=== PATIENT | male | born 1945 | race Caucasian/White ===

== ENCOUNTER 2016-07-11 10:37 | Emergency (ER) | payer MEDICARE, OTHER | END 2016-07-11 13:03 | disposition home or self-care (01) | DX: J06.9 Acute upper respiratory infection, unspecified (principal); B97.89 Other viral agents as the cause of diseases classified elsewhere; I10 Essential (primary) hypertension; E11.9 Type 2 diabetes mellitus without complications; Z79.4 Long term (current) use of insulin; E03.9 Hypothyroidism, unspecified ==

== ENCOUNTER 2018-05-12 13:37 | Outpatient (CLI) | payer MEDICARE, OTHER | END 2018-05-12 13:38 | disposition critical access hospital (66) | LOC: EMS 13:37 | PROVIDERS: ATTEND Surgery | DX: M79.651 Pain in right thigh (principal); W00.0XXA Fall on same level due to ice and snow, initial encounter; Y92.79 Other farm location as the place of occurrence of the external cause | CPT/HCPCS: A0425; A0429 ==

== ENCOUNTER 2018-05-12 13:57 | Inpatient (IN) | payer MEDICARE, OTHER ==
[2018-05-12] MEDS ORDERED: MORPHINE 2 MG/ML CARPUJECT IVP STA ×2 (14:01→15:17)
[2018-05-12] MEDS ORDERED: SODIUM CHLORIDE 0.9% 1,000 ML IV ONE (14:01)
--- NOTE | 2018-05-12 14:03 | ED Physician Documentation ---
PD HPI LOWER EXT INJURY - Stated complaint Stated Complaint: HIP PX - History obtained from History obtained from: Patient, EMS - History of Present Illness PD HPI LOW EXT INJURY LOCATION: Right (73-year-old gentleman with history of type 2 diabetes and hypertension, not anticoagulated except for turmeric presents after a slip and fall on the ice landing directly on the right hip with severe pain there. No head or neck injury. He is unable to walk or bear weight.) Review of Systems Ten Systems: 10 systems reviewed and negative Constitutional: reports: Reviewed and negative Cardiac: reports: Reviewed and negative Respiratory: reports: Reviewed and negative PD PAST MEDICAL HISTORY - Past Medical History Past Medical History: Yes Cardiovascular: Hypertension Endocrine/Autoimmune: Type 2 diabetes, HyPOthyroidism - Present Medications Home Medications: Ambulatory Orders Medication Instructions Recorded Confirmed Insulin Aspart [NovoLOG] 1 unit SQ DAILY 07/11/16 05/12/18 Insulin Degludec [Tresiba 10 units SQ DAILY 07/11/16 05/12/18 Flextouch U-100] Levothyroxine Sodium [Synthroid] 175 mcg PO QDAC 05/12/18 05/12/18 Losartan Potassium 25 mg PO DAILY 05/12/18 05/12/18 - Allergies Allergies/Adverse Reactions: Allergies Allergy/AdvReac Type Severity Reaction Status Date / Time Latex, Natural Rubber Allergy Itching Verified 05/12/18 14:03 - Living Situation Living Situation: reports: With spouse/s.o. - Social History Does the pt smoke?: No Smoking Status: Never smoker Does the pt drink ETOH?: Yes Does the pt have substance abuse?: No - Family History Family history: reports: Non contributory PD ED PE NORMAL - Vitals Vital signs reviewed: Yes - General General: Alert and oriented X 3, Other (He is comfortable at rest but winces with any motion) - HEENT HEENT: PERRL, EOMI - Neck Neck: Supple, no meningeal sign, No bony TTP - Cardiac Cardiac: RRR, No murmur - Respiratory Respiratory: No respiratory distress, Clear bilaterally - Abdomen Abdomen: Normal bowel sounds, Soft, Non tender - Back Back: No CVA TTP, No spinal TTP - Extremities Extremities: Other (Severely tender over the right upper hip with shortening and external rotation) - Neuro Neuro: Alert and oriented X 3, Normal speech - Psych Psych: Normal mood, Normal affect Results - Vitals Vitals: Vital Signs - 24 hr 05/12/18 05/12/18 13:59 15:28 Temperature 36.4 C L Heart Rate 82 90 Respiratory 18 18 Rate Blood Pressure 168/127 H 189/77 H O2 Saturation 97 100 Oxygen O2 Source Room air - EKG (time done) 1524 Rate: Rate (enter#) (80) Rhythm: NSR Mauldin: Normal Intervals: Normal MD QRS: Normal Ischemia: Normal ST segments Computer interpretation: Disagree with computer - Labs Labs: Laboratory Tests 05/12/18 05/12/18 05/12/18 14:17 14:17 14:17 WBC 7.1 RBC 4.50 L Hgb 14.0 Hct 39.8 L MCV 88.5 MCH 31.1 H MCHC 35.1 RDW 12.9 Plt Count 271 MPV 8.1 Neut # (Auto) 5.4 Lymph # (Auto) 1.1 L [place] # (Auto) 0.4 Eos # (Auto) 0.0 Baso # (Auto) 0.1 Absolute Nucleated RBC 0.00 Nucleated RBC % 0.0 PT 11.6 INR 1.0 Sodium 135 Potassium 3.9 Chloride 99 L Carbon Dioxide 24 Anion Gap 12.0 BUN 18 Creatinine 1.0 Estimated GFR (MDRD) 73 L Glucose 141 H Calcium 9.2 Total Bilirubin 1.5 H AST 29 ALT 21 Alkaline Phosphatase 75 Total Protein 7.1 Albumin 4.2 Globulin 2.9 Albumin/Globulin Ratio 1.4 Lipase 23 PD MEDICAL DECISION MAKING - ED course Complexity details: d/w sap treasury consultant (Steve York, magnetic resonance imaging coordinator ortho will take to OR today or tomorrow. Also Dr [facility]don[facility] who will [facility].) Departure - Departure Disposition: [facility] DC/Xfer Clinical Impression: Subtrochanteric fracture Qualifiers: Encounter type: initial encounter Fracture type: closed Fracture alignment: displaced Laterality: right Qualified Code(s): S72.21XA - Displaced subtrochanteric fracture of right femur, initial encounter for closed fracture Condition: Stable
[2018-05-12 14:28] LABS: BASOPHILS # (AUTO) 0.1 10^3/uL (0.0-0.1); BASOPHILS % (AUTO) 1.1 %; EOSINOPHILS % (AUTO) 0.7 %; LYMPHOCYTES # (AUTO) 1.1 10^3/uL (1.5-3.5); MEAN CORPUSCULAR HEMOGLOBIN 31.1 pg (27.0-31.0); MEAN CORPUSCULAR HGB CONC 35.1 g/dL (32.0-36.0); MEAN CORPUSCULAR VOLUME 88.5 fL (80.0-94.0); MEAN PLATELET VOLUME 8.1 fL (7.4-11.4); MONOCYTES # (AUTO) 0.4 10^3/uL (0.0-1.0); MONOCYTES % (AUTO) 6.1 %; NEUTROPHILS # (AUTO) 5.4 10^3/uL (1.5-6.6); NEUTROPHILS % (AUTO) 76.1 %; PLT - PLATELET COUNT 271 10^3/uL (130-450); RED CELL DISTRIBUTION WIDTH 12.9 % (12.0-15.0); WHITE BLOOD COUNT 7.1 x10^3/uL (4.8-10.8)
[2018-05-12 14:36] LABS: PT - PROTHROMBIN TIME 11.6 secs (9.9-12.6)
[2018-05-12 14:48] LABS: ALBUMIN 4.2 g/dL (3.2-5.5); ALBUMIN/GLOBULIN RATIO 1.4 (1.0-2.2); BILIRUBIN,TOTAL 1.5 mg/dL (0.2-1.0); CALCIUM 9.2 mg/dL (8.5-10.3); TOTAL PROTEIN 7.1 g/dL (6.7-8.2)
[2018-05-12] MEDS ORDERED: SODIUM CHLORIDE FLUSH 0.9% 10 ML SYRINGE IVP PRN (15:28)
[2018-05-12] MEDS ORDERED: PROCHLORPERAZINE 10 MG/2 ML VIAL IVP PRN (15:28)
[2018-05-12] MEDS ORDERED: ONDANSETRON ODT 4 MG TABLET TL PRN (15:28)
[2018-05-12] MEDS ORDERED: ONDANSETRON 4 MG/2 ML VIAL IVP PRN (15:28)
--- NOTE | 2018-05-12 15:38 | HISTORY & PHYSICAL EXAMINATION ---
Chief Complaint - Chief Complaint Chief Complaint: s/p fall with right hip and leg pain History of Present Illness - Admitted From Admitted From:: ED - History Obtained From Records Reviewed: Yes History obtained from: patient Exam Limitations: none - History of Present Illness HPI Comment/Other: 73-year-old gentleman with history of type 2 diabetes and hypertension, not anticoagulated except for turmeric presents after a slip and fall on the ice landing directly on the right hip with severe pain there. No head or neck injury. He is unable to walk or bear weight. On initial exam patient was unable to walk with LROM to abduction/adduction of right hip along with a subtrochanteric fx seen on imaging. CXR shows no CP process, patient with normal labs and VSS show pain induced uncontrolled HTN. Patient on losartan, synthroid and is a Insuling req Type 2 diabetic. Patient has on tumeric previously, denies chest pain, LOC, syncopal events prior to fall, numbness to right lower extremity or head trauma. Patient to be admitted for further treatment with repair of fracture and pain control. History - Past Medical History Cardiovascular: reports: Hypertension Endocrine/Autoimmune: reports: Type 2 diabetes, HyPOthyroidism - Family & Social History Living Situation: With spouse/s.o. Meds/Allgy - Home Medications Home Medications: Ambulatory Orders Medication Instructions Recorded Confirmed Insulin Degludec [Tresiba 6 units SQ DAILY 07/11/16 05/12/18 Flextouch U-100] Insulin Aspart (Niacinamide) 1 - 10 units SUBQ ACHS 05/12/18 05/12/18 [Fiasp 100 Unit/ml Vial] Levothyroxine Sodium [Synthroid] 175 mcg PO QDAC 05/12/18 05/12/18 Losartan Potassium 25 mg PO DAILY 05/12/18 05/12/18 - Allergies Allergies/Adverse Reactions: Allergies Allergy/AdvReac Type Severity Reaction Status Date / Time Latex, Natural Rubber Allergy Itching Verified 05/12/18 14:03 Review of Systems - Constitutional Constitutional: denies: Fatigue, Fever, Chills - Eyes Eyes: denies: Pain, Irritation, Vision loss - Ears, Nose & Throat Ears, Nose & Throat: denies: Tinnitus, Vertigo - Cardiovascular Cariovascular: denies: Irregular heart rate, Palpitations, Chest pain, Edema, Li ghtheadedness, Syncope, Exertional dyspnea, Decr. exercise tolerance, Orthopnea - Respiratory Respiratory: denies: Cough, Sputum production, Wheezing, Snoring, Hemoptysis, Orthopnea, Apnea, Pleuritic pain - Gastrointestinal Gastrointestinal: denies: Abdominal pain, Constipation, Diarrhea, Change in bowel habits, Black stools, Bloody stools, Nausea, Coffee grounds emesis, Reflux/heartburn, Poor appetite - Genitourinary Genitourinary: denies: Dysuria, Frequency, Urgency, Hematuria - Musculoskeletal Musculoskeletal: denies: Muscle pain, Back pain, Muscle aches - Integumentary Integumentary: denies: Rash, Pruritis, Lesions, Pigment changes - Neurological Neurological: denies: General weakness, Focal weakness, Headache, Dizziness, Numbness, Memory problems, Pre-existing deficit, Abnormal gait - Psychiatric Psychiatric: denies: Depression, Anxiety, Suicidal, Delusions, Hallucinations - Endocrine Endocrine: denies: Polyuria, Polydypsia, Polyphagia, Intolerance to cold - Hematologic/Lymphatic Hematologic/Lymphatic: denies: Anemia, Bruising, Blood clots, Lymphadenopathy Prior Level of Functionality: Is currently independent with ADL's Exam - Vital Signs Reviewed Vital Signs: Yes Vital Signs: Vital Signs x48h Temp Pulse Resp BP Pulse Ox 05/12/18 15:28 90 18 189/77 H 100 05/12/18 13:59 36.4 C L 82 18 168/127 H 97 - Physical Exam General Appearance: positive: No acute distress Eyes Bilateral: positive: Normal inspection, PERRL, EOMI ENT: positive: ENT inspection nml, Pharynx nml, No signs of dehydration Neck: positive: Nml inspection, Thyroid nml, No JVD, Trachea midline. negative: Thyromegaly Respiratory: positive: Chest non-tender, No respiratory distress, Breath sounds nml Cardiovascular: positive: Regular rate & rhythm, No murmur, No gallop. negative: Irregularly irregular, JVD present, Gallop/S4, Friction rub Peripheral Pulses: positive: 2+ Abdomen: positive: Non-tender, No organomegaly, Nml bowel sounds, No distention. negative: Tenderness Skin: positive: Color nml, No rash, Warm Extremities: positive: Non-tender, Nml appearance, Other (LROM to abduction/adduction to right hip). negative: Pedal edema, Calf tenderness, Joint swelling Conclusion/Plan - Problem List (1) Subtrochanteric fracture Conclusion/Plan: s/p mechanical fall with now LROM and mobility would need orhto to repair tonight or tomorrow am. However would hold off since he has been on tumeric and would cause bleeding intra-operatively. Pain control. Ortho to eval for surgery in am. Would give IVF's, medical manage other medical conditions. Qualifiers: Encounter type: initial encounter Fracture type: closed Fracture alignment: displaced Laterality: right Qualified Code(s): S72.21XA - Disp laced subtrochanteric fracture of right femur, initial encounter for closed fracture (2) Pre-operative cardiovascular examination Conclusion/Plan: Patient's MILLARD perioperative riskl yields a KENNY risk of 0.2 % (low); Up to 30 days post-op) for a low risk procedure due his age, good functional status, renal function, ASA class, and controlled medical conditions. In addition, further risk stratification for his pre-operative risk yields a 2.4% perioperat hien risk. May have surgery but may bleed intraoperatively due to his tumeric consumption. CXR was normal and would defer ecg as no tachycardias seen. (3) Hypertension, uncontrolled Conclusion/Plan: Would place on IV hydralazine prn, place back on home bp meds (4) Insulin-requiring or dependent type II diabetes mellitus Conclusion/Plan: Place on Carb-control diet with glycemic control with bolus and basal coverage if needed, obtain a HgbA1c. (5) Hypothyroidism Conclusion/Plan: Obtain a TSH and re-start synthroid. Qualifiers: Hypothyroidism type: acquired Qualified Code(s): E03.9 - Hypothyroidism, unspecified - Lab Results Lab results reviewed: Yes Fish Bones: 05/12/18 14:17 05/12/18 14:17 - Diagnostic Imaging Results Diagnostic Imaging Results: positive: Final report reviewed - EKG Results EKG Interpreted Independently: No Core Measures - Anticipated LOS I expect patient to be DC'd or transferred within 96 hours.: Yes - DVT/VTE - Prophylaxis VTE/DVT Device ordered at admit?: Yes VTE/DVT Prophylaxis med ordered at admit?: No Not Ordered - Medical Reason: Not indicated - Stroke - Rehab Assessment Rehab services assessment to be ordered?: No Not Ordered - Medical Reason: Not indicated - AMI - Statin at Admit Aspirin Prescribed on Admit: No Not Ordered - Medical Reason: Not indicated
[2018-05-12] MEDS ORDERED: hydrALAZINE INJ 20 MG/ML VIAL IVP PRN (15:54)
--- NOTE | 2018-05-12 16:01 | XRAY Report ---
Reason: femur frx Procedure Date: 05/12/2018 Accession Number: [id number] / [id number] Procedure: XR - Femur 2V RT CPT Code: FULL RESULT: EXAM: RIGHT FEMUR RADIOGRAPHY EXAM DATE: 05/12/2018 03:11 PM. CLINICAL HISTORY: Femur fracture COMPARISON: None. TECHNIQUE: 2 views. FINDINGS: Bones: Intertrochanteric, proximal femoral fracture is seen on hip views. Joints: Degenerative changes knee Soft Tissues: Normal. No soft tissue swelling. IMPRESSION: Intertrochanteric, proximal femoral fracture is seen on hip films. This does not extend to the distal femur RADIA
--- NOTE | 2018-05-12 16:02 | XRAY Report ---
Reason: hip inj Procedure Date: 05/12/2018 Accession Number: [id number] / [id number] Procedure: XR - Hip w/Pelvis 2-3V RT CPT Code: FULL RESULT: EXAM: RIGHT HIP RADIOGRAPHY EXAM DATE: 05/12/2018 03:11 PM. CLINICAL HISTORY: Hip inj. COMPARISON: None. TECHNIQUE: 2 views. FINDINGS: Bones: Vertical oblique fracture through the intertrochanteric region extending into the proximal femur. Offset of distal fragment medially by 2.4 cm. Joints: Hip joint space narrowing. Soft Tissues: Normal. No soft tissue swelling. IMPRESSION: Intertrochanteric fracture extending into proximal femur RADIA
--- NOTE | 2018-05-12 16:19 | XRAY Report ---
Reason: preop Procedure Date: 05/12/2018 Accession Number: [id number] / [id number] Procedure: XR - Chest 1 View X-Ray CPT Code: 62005 FULL RESULT: EXAM: CHEST RADIOGRAPHY EXAM DATE: 05/12/2018 03:11 PM. CLINICAL HISTORY: Preop. COMPARISON: CHEST 2 VIEW PA/LAT 07/11/2016 11:58 AM. TECHNIQUE: 1 view. FINDINGS: Diffuse film artifact throughout the image, which limits evaluation. Heart size is normal. Calcified plaque in the thoracic aorta. No definite consolidation, pleural effusion, or pneumothorax. Apparent 5 mm nodular opacity projecting over the lateral left lung base, which may have been present on the prior exam from 2017. IMPRESSION: No definite acute cardiopulmonary findings. Film artifact limits evaluation. RADIA
[2018-05-12 16:50] LABS: HEMOGLOBIN A1C 0.76 g/dL; HEMOGLOBIN A1C % 6.8 % (4.6-6.2)
--- NOTE | 2018-05-12 17:21 | ADVANCE CARE PLANNING NOTE ---
Advance Care Planning - Date/Time Date: 05/12/18 Time: 17:00 - Parties in attendance Parties in attendance: Family - Decisional capacity Decisional capacity of: Good - Subjective/Patient's story Subjective/Patient's story: Patient mentions he lost his footing and fell backwards and says he was unable to walk. Knows that his right hip needs to be repaired. - Objective/Medical story Objective/Medical Story: 73-year-old gentleman with history of type 2 diabetes and hypertension, not anticoagulated except for turmeric presents after a slip and fall on the ice landing directly on the right hip with severe pain there. No head or neck injury. He is unable to walk or bear weight. On initial exam patient was unable to walk with LROM to abduction/adduction of right hip along with a subtrochanteric fx seen on imaging. CXR shows no CP process, patient with normal labs and VSS show pain induced uncontrolled HTN. Patient on losartan, synthroid and is a Insuling req Type 2 diabetic. Patient has on tumeric previously, denies chest pain, LOC, syncopal events prior to fall, numbness to right lower extremity or head trauma. Patient to be admitted for further treatment with repair of fracture and pain control. - Goals of Care Goals of care determinations: Pain control and the need for surgery were discusses and he vocalized concerns and questions were addressed. - Plan Plan: Patient to have surgery by moses York tomorrow noon. Pain control, bed rest, and IVF;s to continue for now, control sugars, BP excursions as delineated by admission note. - Code Status Code Status: Attempt Resuscitation - Time Spent on Advance Care Planning Time spent on advance care plannin
[2018-05-12] MEDS: LACTATED RINGERS 1,000 ML IV SCH (17:25)
[2018-05-12] MEDS: SODIUM CHLORIDE FLUSH 0.9% 10 ML SYRINGE IVP SCH (17:25)
[2018-05-12] MEDS: INSULIN ASPART 300 UNIT/3 ML PEN SUBQ SCH ×2 (17:33→20:37)
[2018-05-12] MEDS: MORPHINE 2 MG/ML CARPUJECT IVP PRN ×2 (17:34→21:32)
--- NOTE | 2018-05-12 18:59 | CONSULTATION NOTE ---
Referring Provider Name of Referring Provider:: Chalo Lemos MD Consult Date: 05/12/18 Chief Complaint - Chief Complaint Chief Complaint: asked to evaluate for right subtroch, spiral femur fracture History of Present Illness - Admitted From Admitted From:: ED - History Obtained From History obtained from: ED MD, patient, , daughter - History of Present Illness HPI Comment/Other: Adrian is a 73yo male, in usual state of health until today when walking at [employer], slipped fell reportedly onto right hip/thigh, heard a snap, had pain and inability to ambulate. He was attended to by bystanders, then ultimately brought to ED via EMS. Patient is evaluated in the emergency department with his and daughter at the bedside. Patient describes only right hip and thigh pain. Says he is relatively comfortable at rest but that any movement will cause pain in that region. Denies head or neck injury or other traumatic complaints at this time. History - Past Medical History Cardiovascular: reports: Hypertension Neuro: reports: None Endocrine/Autoimmune: reports: Type 2 diabetes, HyPOthyroidism - Family & Social History Living Situation: With spouse/s.o. Meds/Allgy - Home Medications Home Medications: Ambulatory Orders Medication Instructions Recorded Confirmed Insulin Degludec [Tresiba 6 units SQ DAILY 07/11/16 05/12/18 Flextouch U-100] Insulin Aspart (Niacinamide) 1 - 10 units SUBQ ACHS 05/12/18 05/12/18 [Fiasp 100 Unit/ml Vial] Levothyroxine Sodium [Synthroid] 175 mcg PO QDAC 05/12/18 05/12/18 Losartan Potassium 25 mg PO DAILY 05/12/18 05/12/18 - Allergies Allergies/Adverse Reactions: Allergies Allergy/AdvReac Type Severity Reaction Status Date / Time Latex, Natural Rubber Allergy Itching Verified 05/12/18 14:03 Exam - Vital Signs Vital Signs: Vital Signs x48h Temp Pulse Pulse Resp BP BP Pulse Ox 05/12/18 17:07 37.1 C 85 20 175/61 H 100 05/12/18 16:59 79 16 170/67 H 99 05/12/18 16:26 85 16 182/71 H 100 05/12/18 15:28 90 18 189/77 H 100 05/12/18 13:59 36.4 C L 82 18 168/127 H 97 - Physical Exam Comments/Other: Patient is a well-developed well-nourished 73-year-old gentleman in no acute distress. He is cooperative with the exam. Patient's right lower extremity is examined. He has palpable dorsalis pedis and posterior tibial pulses. He is able to initiate flexion extension of his toes and ankle. He has pain in the hip and thigh on the right side with attempts at knee flexion extension though he can initiate these. Thigh and calf compartments soft. He has proximal thigh fullness but it is still soft. Any slight rotational movement of the lower extremity which is in a slightly shortened externally rotated position is painful. Skin overlying the hip and thigh is intact. Conclusion/Plan - Diagnosis Diagnosis: RIGHT SUB TROCHANTERIC SPIRAL FEMUR FRACTURE - Plan Plan: Adrian is a 73-year-old male with a right subtrochanteric displaced spiral femur fracture. There are no other obvious trauma appreciated at this time. Discussed potential operative risks benefits and alternatives. Talked about natural history and relevant literature as a pertains to this patient. Talked about potential short-term and long-term problems with and without surgery. Talked about potential operative risks including but not limited to infection wound problems nerve or blood vessel injury bleeding blood loss blood clot blood clot embolus positioning complications anesthetic complications including but not limited to major cardiovascular neurovascular complications even . Talked about potential iatrogenic injury and the potential for length alignment and rotational abnormality. Talked about potential need for further operative care in the future. Talked about potential for overall impact to his function decreased ambulatory status and other risks such as pneumonia bedsores and other issues with relative immobility. The patient the patient's family's questions were answered the patient verbalized their understanding above verbalize wish to proceed with operative treatment. Informed consent was given. Medical risk stratification and optimization, ortho implants incoming, plan for right femur cephalomedullary nail/ORIF tomorrow pending above. questions answered. All in agreement with plan. rec analgesia, pascual cath, IS q1hr when awake, scd's or foot pumps, cont med mgt - Lab Results Lab results reviewed: Yes Fish Bones: 05/12/18 14:17 05/12/18 14:17
[2018-05-12] MEDS: FAMOTIDINE 20 MG/50 ML 50 ML IV SCH (20:36)
[2018-05-13] MEDS: MORPHINE 2 MG/ML CARPUJECT IVP PRN ×2 (00:06→06:02)
[2018-05-13] MEDS: SODIUM CHLORIDE FLUSH 0.9% 10 ML SYRINGE IVP SCH ×3 (01:15→17:14)
[2018-05-13] MEDS: LACTATED RINGERS 1,000 ML IV SCH ×3 (03:37→21:00)
[2018-05-13] MEDS: LEVOTHYROXINE 75 MCG TABLET PO SCH (06:03)
[2018-05-13] MEDS: LEVOTHYROXINE 100 MCG TABLET PO SCH (06:03)
[2018-05-13] MEDS ORDERED: INSULIN REGULAR HUMAN 100 UNIT/1 ML 10 ML MDV SUBQ SCH (08:00)
[2018-05-13] MEDS: oxyCODONE 5 MG TABLET PO PRN (10:00)
[2018-05-13] MEDS: POLYETHYLENE GLYCOL 3350 17 GM PACKET PO SCH (10:02)
[2018-05-13] MEDS: FAMOTIDINE 20 MG/50 ML 50 ML IV SCH ×2 (10:04→20:59)
--- NOTE | 2018-05-13 10:27 | ANESTHESIA ---
Pre-Anesthesia VS, & Labs - Diagnosis Diagnosis RIGHT SUB TROCHANTERIC SPIRAL FEMUR FRACTURE - Procedure Right femur cephalomed nail Vital Signs: Temp Pulse Resp BP Pulse Ox 36.9 C 86 18 149/63 H 96 05/13/18 08:00 05/13/18 08:00 05/13/18 08:00 05/13/18 08:00 05/13/18 08:00 Height 6 ft Weight (kg) 93 kg Body Mass Index 27.8 - NPO >8 hours - Lab Results Current Lab Results: Laboratory Tests 05/12/18 14:17: Glycated Hemoglobin 6.8 H, Estim Average Glucose 148 H 05/12/18 14:17: Blood Type O POSITIVE, Antibody Screen NEGATIVE 05/12/18 14:17: Sodium 135, Potassium 3.9, Chloride 99 L, Carbon Dioxide 24, Anion Gap 12.0, BUN 18, Creatinine 1.0, Estimated GFR (MDRD) 73 L, Glucose 141 H , Calcium 9.2, Total Bilirubin 1.5 H, AST 29, ALT 21, Alkaline Phosphatase 75, Total Protein 7.1, Albumin 4.2, Globulin 2.9, Albumin/Globulin Ratio 1.4, Lipase 23 05/12/18 14:17: PT 11.6, INR 1.0 05/12/18 14:17: WBC 7.1, RBC 4.50 L, Hgb 14.0, Hct 39.8 L, MCV 88.5, MCH 31.1 H, MCHC 35.1, RDW 12.9, Plt Count 271, MPV 8.1, Neut # (Auto) 5.4, Lymph # (Auto) 1.1 L, Harmon # (Auto) 0.4, Eos # (Auto) 0.0, Baso # (Auto) 0.1, Absolute Nucleated RBC 0.00, Nucleated RBC % 0.0 Fish Bones: 05/12/18 14:17 05/12/18 14:17 Home Medications and Allergies Home Medications: Ambulatory Orders Insulin Aspart (Niacinamide) [Fiasp 100 Unit/ml Vial] 1 - 10 units SUBQ ACHS 05/12/18 Levothyroxine Sodium [Synthroid] 175 mcg PO QDAC 05/12/18 Losartan Potassium 25 mg PO DAILY 05/12/18 Active Medications Hydralazine HCl (Apresoline Inj) 20 mg IVP Q4HR PRN PRN Reason: SBP>180 Famotidine (Pepcid 20 Mg/50 Ml) 50 mls @ 100 mls/hr IV BID [facility] Last Admin: 05/13/18 10:04 Dose: 100 mls/hr Lactated Ringer's (Lr) 1,000 mls @ 100 mls/hr IV .Q10H [facility] Last Infusion: 05/13/18 06:56 Dose: 100 mls/hr Insulin Human Regular (Novolin R) 1 - 9 unit SUBQ Q6HR [facility]; Protocol Last Admin: 05/13/18 08:23 Dose: 9 unit Levothyroxine Sodium (Synthroid) 75 mcg PO QDAC [facility] Last Admin: 05/13/18 06:03 Dose: 75 mcg Levothyroxine Sodium (Synthroid) 100 mcg PO QDAC [facility] Last Admin: 05/13/18 06:03 Dose: 100 mcg Losartan Potassium (Cozaar) 25 mg PO DAILY [facility] Morphine Sulfate (Morphine (Carpuject)) 2 mg IVP Q2HR PRN PRN Reason: Pain 8 to 10 Last Admin: 05/13/18 06:02 Dose: 2 mg Ondansetron HCl (Zofran Inj) 4 mg IVP Q6HR PRN PRN Reason: Nausea / Vomiting Ondansetron HCl (Zofran Odt) 4 mg TL Q6HR PRN PRN Reason: Nausea / Vomiting Oxycodone HCl (Roxicodone) 5 mg PO Q4HR PRN PRN Reason: Pain 5 to 7 Last Admin: 05/13/18 10:00 Dose: 5 mg Polyethylene Glycol (Miralax) 17 gm PO DAILY [facility] Last Admin: 05/13/18 10:02 Dose: Not Given Prochlorperazine Edisylate (Compazine Inj) 10 mg IVP Q6HR PRN PRN Reason: Nausea / Vomiting Sodium Chloride (Normal Saline Flush 0.9%) 10 ml IVP PRN PRN PRN Reason: NEEDED PER PROVIDER ORDERS Sodium Chloride (Normal Saline Flush 0.9%) 10 ml IVP 0100,0900,1700 [facility] Last Admin: 05/13/18 01:15 Dose: Not Given Insulin Degludec [Tresiba Flextouch U-100] 6 units SQ DAILY 07/11/16 Insulin Aspart (Niacinamide) [Fiasp 100 Unit/ml Vial] 1 - 10 units SUBQ ACHS 05/12/18 Levothyroxine Sodium [Synthroid] 175 mcg PO QDAC 05/12/18 Losartan Potassium 25 mg PO DAILY 05/12/18 Allergies/Adverse Reactions: Allergies Allergy/AdvReac Type Severity Reaction Status Date / Time Latex, Natural Rubber Allergy Itching Verified 05/12/18 14:03 Anes History & Medical History - Medical History Cardiovascular: reports: Hypertension Neuro: reports: None Endocrine/Autoimmune: reports: Type 2 diabetes, HyPOthyroidism Smoking Status: Never smoker - Surgical History Orthopedic: Arthroscopic surgery (knee) Exam General: Alert Dental: WNL Mouth Opening: Greater than 4 Fingerbreadths Mallampati classification: II Thyromental Distance: greater than 6 cm Respiratory: Lungs clear Cardiovascular: Regular rate Plan Anesthesia Type: General Consent for Procedure(s) Verified and Reviewed: Yes Code Status: Attempt Resuscitation ASA classification: 2-Mild systemic disease Is this case an emergency?: Yes
[2018-05-13] MEDS: LOSARTAN 50 MG TABLET PO SCH (10:50)
--- NOTE | 2018-05-13 10:52 | PROVIDER PROGRESS NOTE ---
Assessment/Plan - Problem List (1) Subtrochanteric fracture Qualifiers: Encounter type: initial encounter Fracture type: closed Fracture alignment: displaced Laterality: right Qualified Code(s): S72.21XA - Displaced subtrochanteric fracture of right femur, initial encounter for closed fracture Assessment/Plan: Surgery scheduled for mid-day today. Continue narcotics for pain control as needed. Will plan PT/OT starting tomorrow. Possible SNF candidate in several days. (2) Insulin-requiring or dependent type II diabetes mellitus Assessment/Plan: Will change his Reg insulin, that he is resistant to, to Aspart ss Insulin, for NPO, then eating patient. Continue fingerstick glu checks and jypoglycemia protocol, because pt can drop low, per him. (3) Hypothyroidism Qualifiers: Hypothyroidism type: acquired Qualified Code(s): E03.9 - Hypothyroidism, unspecified Assessment/Plan: His Levothyroxine 175 mcg daily dose will be continued while here. (4) HTN (hypertension) Qualifiers: Hypertension type: essential hypertension Qualified Code(s): I10 - Essen tial (primary) hypertension Assessment/Plan: He was poorly controlled at admission, possibly due to pain. BP is better now. His home dose of Losartan 25 mg daily will be continued while here. - Current Meds Current Meds: Current Medications Generic Name Dose Route Start Last Admin Trade Name Freq PRN Reason Stop Dose Admin Famotidine 50 mls @ 100 mls/hr 05/12/18 21:00 05/13/18 10:04 Pepcid 20 Mg/50 Ml IV 100 mls/hr BID ERVIN Administration Lactated Ringer's 1,000 mls @ 100 mls/hr 05/12/18 16:00 05/13/18 06:56 Lr IV 100 mls/hr .Q10H ERVIN Infusion Levothyroxine Sodium 75 mcg 05/13/18 07:00 05/13/18 06:03 Synthroid PO 75 mcg QDAC ERVIN Administration Levothyroxine Sodium 100 mcg 05/13/18 07:00 05/13/18 06:03 Synthroid PO 100 mcg QDAC ERVIN Administration Morphine Sulfate 2 mg 05/12/18 15:28 05/13/18 06:02 Morphine (Carpuject) IVP 2 mg Q2HR PRN Administration Pain 8 to 10 Oxycodone HCl 5 mg 05/12/18 15:28 05/13/18 10:00 Roxicodone PO 5 mg Q4HR PRN Administration Pain 5 to 7 Polyethylene Glycol 17 gm 05/13/18 09:00 05/13/18 10:02 Miralax PO Not Given DAILY [facility] Sodium Chloride 10 ml 05/12/18 17:00 05/13/18 01:15 Normal Saline Flush 0.9% IVP Not Given 0100,0900,1700 ERVIN - Lab Result Fish Bone Diagrams: 05/12/18 14:17 05/12/18 14:17 - Additional Planning My Orders: My Active Orders 05/13/18 07:47 Blood Glucose POC [RC] 0000,0600,1200,1800 05/13/18 07:48 DIET [NPO] [DIET] Subjective - Subjective Patient Reports: Pain (Getting narcotics for [pain at fracture site), Other ("Regular Insulin doesn't work". He was changed to Aspart, Novolog and Humolog. He has a continuous glucose monitor.) Objective Vital Signs: Vital Signs - 24 hr 05/12/18 05/12/18 05/12/18 13:59 15:28 16:26 Temperature 36.4 C L Heart Rate 82 90 85 Heart Rate [ Brachial] Respiratory 18 18 16 Rate Blood Pressure 168/127 H 189/77 H 182/71 H Blood Pressure [Right Brachial artery] O2 Saturation 97 100 100 05/12/18 05/12/18 05/12/18 16:59 17:07 23:40 Temperature 37.1 C 37.0 C Heart Rate 79 Heart Rate [ 85 91 Brachial] Respiratory 16 20 16 Rate Blood Pressure 170/67 H Blood Pressure 175/61 H 137/60 H [Right Brachial artery] O2 Saturation 99 100 98 05/13/18 08:00 Temperature 36.9 C Heart Rate Heart Rate [ 86 Brachial] Respiratory 18 Rate Blood Pressure Blood Pressure 149/63 H [Right Brachial artery] O2 Saturation 96 Oxygen O2 Source Room air I&O (Last 24 Hrs): Intake and Output Totals x24h 05/11/18 05/12/18 05/13/18 23:59 23:59 23:59 Intake Total 5446.926 3064.334 Output Total 850 1100 Balance 818.333 -86.666 General: Alert, Oriented x3 HEENT: Mucous membr. moist/pink Neck: Supple, No JVD Neuro: Non Focal Cardiovascular: Regular rate Respiratory: No respiratory distress Abdomen: Soft Extremities: No edema - Results Results: Laboratory Results WBC 7.1 x10^3/uL (4.8-10.8) 05/12/18 14:17 RBC 4.50 10^6/uL (4.70-6.10) L 05/12/18 14:17 Hgb 14.0 g/dL (14.0-18.0) 05/12/18 14:17 Hct 39.8 % (42.0-52.0) L 05/12/18 14:17 MCV 88.5 fL (80.0-94.0) 05/12/18 14:17 MCH 31.1 pg (27.0-31.0) H 05/12/18 14:17 MCHC 35.1 g/dL (32.0-36.0) 05/12/18 14:17 RDW 12.9 % (12.0-15.0) 05/12/18 14:17 Plt Count 271 10^3/uL (130-450) 05/12/18 14:17 MPV 8.1 fL (7.4-11.4) 05/12/18 14:17 Neut # (Auto) 5.4 10^3/uL (1.5-6.6) 05/12/18 14:17 Lymph # (Auto) 1.1 10^3/uL (1.5-3.5) L 05/12/18 14:17 [place] # (Auto) 0.4 10^3/uL (0.0-1.0) 05/12/18 14:17 Eos # (Auto) 0.0 10^3/uL (0.0-0.7) 05/12/18 14:17 Baso # (Auto) 0.1 10^3/uL (0.0-0.1) 05/12/18 14:17 Absolute Nucleated RBC 0.00 x10^3/uL 05/12/18 14:17 Nucleated RBC % 0.0 /100WBC 05/12/18 14:17 PT 11.6 secs (9.9-12.6) 05/12/18 14:17 INR 1.0 (0.8-1.2) 05/12/18 14:17 Sodium 135 mmol/L (135-145) 05/12/18 14:17 Potassium 3.9 mmol/L (3.5-5.0) 05/12/18 14:17 Chloride 99 mmol/L (101-111) L 05/12/18 14:17 Carbon Dioxide 24 mmol/L (21-32) 05/12/18 14:17 Anion Gap 12.0 (6-13) 05/12/18 14:17 BUN 18 mg/dL (6-20) 05/12/18 14:17 Creatinine 1.0 mg/dL (0.6-1.2) 05/12/18 14:17 Estimated GFR (MDRD) 73 (>89) L 05/12/18 14:17 Glucose 141 mg/dL (70-100) H 05/12/18 14:17 Glycated Hemoglobin 6.8 % (4.6-6.2) H 05/12/18 14:17 Estim Average Glucose 148 (70-100) H 05/12/18 14:17 Calcium 9.2 mg/dL (8.5-10.3) 05/12/18 14:17 Total Bilirubin 1.5 mg/dL (0.2-1.0) H 05/12/18 14:17 AST 29 IU/L (10-42) 05/12/18 14:17 ALT 21 IU/L (10-60) 05/12/18 14:17 Alkaline Phosphatase 75 IU/L (42-121) 05/12/18 14:17 Total Protein 7.1 g/dL (6.7-8.2) 05/12/18 14:17 Albumin 4.2 g/dL (3.2-5.5) 05/12/18 14:17 Globulin 2.9 g/dL (2.1-4.2) 05/12/18 14:17 Albumin/Globulin Ratio 1.4 (1.0-2.2) 05/12/18 14:17 Lipase 23 U/L (22-51) 05/12/18 14:17 Blood Type O POSITIVE 05/12/18 14:17 Antibody Screen NEGATIVE 05/12/18 14:17
[2018-05-13] MEDS ORDERED: INSULIN ASPART 300 UNIT/3 ML PEN SUBQ SCH (12:00)
[2018-05-13] MEDS ORDERED: BUPIVACAINE 0.25%-EPI 1:200000 PF 30 ML VIAL ONE (12:24)
[2018-05-13] MEDS ORDERED: BUPIVACAINE 0.25%-EPI 1:200000 PF 30 ML VIAL SUBQ ONE ×2 (12:55→14:37)
[2018-05-13] MEDS ORDERED: LACTATED RINGERS 1,000 ML IV ONE ×2 (12:55→14:32)
[2018-05-13] MEDS ORDERED: PROCHLORPERAZINE 10 MG/2 ML VIAL IVP PRN (15:09)
[2018-05-13] MEDS ORDERED: ACETAMINOPHEN 1,000 MG/100 ML 100 ML IV PRN (15:09)
[2018-05-13] MEDS ORDERED: ACETAMINOPHEN 325 MG TABLET PO PRN (15:09)
[2018-05-13] MEDS ORDERED: ONDANSETRON 4 MG/2 ML VIAL IVP PRN (15:09)
[2018-05-13] MEDS ORDERED: SODIUM CHLORIDE FLUSH 0.9% 10 ML SYRINGE IVP PRN (15:09)
[2018-05-13] MEDS ORDERED: KETOROLAC 15 MG/ML VIAL ONE (15:26)
[2018-05-13] MEDS: ceFAZolin 2 GM/50 ML 2 GM/50 ML BAG IV SCH (16:03)
[2018-05-13] MEDS: ASPIRIN 325 MG TABLET PO SCH (17:12)
[2018-05-13] MEDS: INSULIN ASPART 300 UNIT/3 ML PEN SUBQ SCH ×2 (17:13→20:59)
--- NOTE | 2018-05-13 17:33 | IMMEDIATE POSTOPERATIVE NOTE ---
Immediate Postoperative Note - Procedure Note Procedure Date: 05/13/18 Pre-Op Diagnosis: Right spiral subtrochanteric femur fracture Procedure: Right femur ORIF, cephalo-medullary nail placement Post-Op Diagnosis: Same Primary Surgeon: Steve York MD Anesthesia Type: General ET tube, Local Complications: No complications Estimated Blood Loss (in cc): 100 Plan of Care: Patient tolerated the procedure well instrument and sponge counts are correct patient is transferred to the recovery room in stable condition. Patient would be foot flat weightbearing right lower extremity with assistance and assistive device as necessary. Patient would be out of bed with physical therapy and occupational therapy. He would be on perioperative antibiotics. Analgesic medications. DVT prophylaxis with aspirin as well as mechanical DVT prophylaxis SCDs or foot pump. Patient will continue on hospitalist service for medical management as appropriate, with close orthopedic management.
[2018-05-14] MEDS: ceFAZolin 2 GM/50 ML 2 GM/50 ML BAG IV SCH (01:06)
[2018-05-14] MEDS: SODIUM CHLORIDE FLUSH 0.9% 10 ML SYRINGE IVP SCH ×3 (02:59→16:06)
--- NOTE | 2018-05-14 03:35 | OPERATIVE REPORT ---
DATE OF SERVICE: 05/13/2018 Physician: Dez York MD HISTORY OF PRESENT ILLNESS/INDICATIONS: Patient is a 73-year-old gentleman with a spiral displaced s ubtrochanteric right femur fracture. He is indicated for operative treatment. Patient and the patie nt's and daughter previously had risks, benefits and alternatives reviewed for operative and non operative treatment. Please see previous consultation. These were again highlighted in the patient' s hospital room. Patient and the patient's 's questions were answered. The patient verbalized t horough understanding of that discussion and verbalizes wish to proceed with operative treatment. In formed consent was given PREOPERATIVE DIAGNOSIS: Right subtrochanteric displaced spiral femur fracture. POSTOPERATIVE DIAGNOSIS: Right subtrochanteric displaced spiral femur fracture. PROCEDURE: Right femur open reduction and internal fixation/cephalomedullary nail placement. INTRAOPERATIVE COMPLICATIONS: None noted. ESTIMATED BLOOD LOSS: 100 mL. URINE OUTPUT: 100 mL. FLUIDS: 1200 mL lactated Ringer's. PREOPERATIVE ANTIBIOTICS: Weight-based IV Ancef. LOCAL ANESTHESIA: 30 mL of 0.25% Marcaine with epinephrine. ANESTHESIA: General anesthesia. ANESTHESIA PROVIDER: Elissa Ortiz CRNA. SURGEON: Dez York MD. DESCRIPTION OF PROCEDURE: On 05/13/2018, patient identified in the preoperative area. He identifies right femur as operative site. This is signed. Patient is\\was given preoperative weight-based IV a ntibiotics. He is brought to the operating room, placed supine initially on his hospital bed and the n general anesthesia is administered and then he is gently transferred to the fracture table. Head, neck and extremities, in particular the contralateral left lower extremity, are placed in anatomic co mfortable and safe positions. Left lower extremity is placed in a maximal safe zone of hip flexion, internal rotation, and abduction in a gel-padded leg rest with an SCD boot in place. The patient's r ight lower extremity is well padded on the foot and then placed in a foot rest and a reduction maneuv er is obtained. At this point, patient has fluoroscopic image used to confirm that the fracture woul d be reducible on the fracture table. At this point, the patient's right thigh and right hip girdle region are shaved, then pre-scrubbed with chlorhexidine solution, then prepped and draped in the usua l sterile fashion. At this time, surgical pause identifies right femur as operative site and fluoroscopic images used to confirm appropriate starting position. At this point, a small incision is made just superior to the greater trochanter of the femur and then a guide pin is brought to the tip of the greater trochanter , centered at about the junction of the middle and anterior thirds, slightly medial to the tip. Guid e pin is brought, pressure is placed laterally on the proximal fragment to help facilitate appropriat e trajectory. At this point, soft tissue protector is placed down to the greater trochanter and then the one-step reamer is used. At this point, a "finger" device is used to help facilitate the reduct ion, allowing this to be passed into the proximal segment, and then a combination of pressure and dir ecting the finger allows placement of the finger across the fracture site and passage of the long jose dewire. Nonetheless, however, the fracture is malreduced and requires open reduction. As such, the anticipated trajectory of the head screw incision is made such that initially a bone rebekah k, and then subsequently a [place]rug[place] bone clamp is used to facilitate a near anatomic reduction. Thi s is held with the [place] until placement of the final nail. At this point, after the guidewire i s measured for length and confirmed to be appropriately placed via fluoroscopic imaging in multiple p lanes with the soft tissue protector, sequential reaming is carried out to approximately 11.5 mm with excellent chatter of the isthmus of the femur; and as such, a 10 mm nail is selected. The appropria te length is selected for the nail and then the nail is ultimately passed. It should be noted that t he fracture site itself was not reamed in the interest of avoiding eccentric placement and displaceme nt of the fracture site once the nail is placed. At this point, the nail is seated to the appropriat e depth and rotated appropriately such that a guide pin could be placed into the approximately center -center position of the neck and head of the femur, followed by reaming and placement of the head scr ew of the appropriate length. Ultimately, this is locked from above, tightening the locking screw/nu t from the superior aspect of the nail all the way down and then loosening one-quarter turn, though n ot expected to have significant movement here given the nature of the fracture pattern. At this point, the fracture is noted to be nearly anatomically reduced. It should be noted that the guidewire was previously removed and then the hip is abducted to facilitate a lateral image of the kn ee, and then ultimately using a perfect lumbee technique, two small stab incisions was made near the knee and then one single dynamic locking bolt and one single static locking bolt are placed in the di stal positions. These are seated appropriately and final imaging at the distal aspect is performed i n multiple planes. At this point, attention is redirected and the fracture is noted to be well reduc ed. At this point, the guide system is removed and final images are taken in multiple planes. At this point, the wounds are copiously irrigated. The proximal most wound has subcutaneous tissue a nd TFL closed and then the skin is closed using 2-0 Vicryl and skin charles. The middle incision fas cial layer is closed using 0 Vicryl, subcutaneous closed with 0 Vicryl and then 2-0 Vicryl and then s taples and then the two small stab incisions adjacent to the knee are closed with 2-0 Vicryl and stap les. It should be noted that prior to closure, copious irrigation is performed at every level. Loca l anesthetic is infused around the wounds. The proximal two wounds have a silver dressing placed aft er washing and drying, and the distal knee incisions have washing and drying, Xeroform dressing appli ed, dry sterile dressing, and then soft roll and Rodolfo wrap. Patient tolerated the procedure well. Instrument and sponge counts are correct. Patient is transfer red to recovery room in stable condition. Patient will follow standard postoperative femur ORIF protocol with intramedullary nail device. He will be foot-flat weightbearing with assistance and assistive device as necessary. He will start formal physical therapy, occupational therapy and have social work consultation for potential SNF arnaud cement if not appropriate candidate to go home with appropriate assistance there. He will be on perioperative DVT prophylaxis and antibiotics. Patient's and daughter are contacted. Case is discussed. Postoperative instructions previously reviewed. Patient will be followed closely by orthopedics and maintained on the medical service for further medical management. ORTHOPEDIC IMPLANTS 1. [employer] TRIGEN INTERTAN nail 125 degrees, 10 mm x 44 cm. 2. [employer] TRIGEN INTERTAN subtrochanteric lag screw, 11 x 100 mm. 3. [employer] TRIGEN LP screw, 5 mm x 42.5 mm. 4. [employer] TRIGEN LP screw, 5 mm x 35 mm. TD: 05/13/2018 17:58
[2018-05-14] MEDS: LACTATED RINGERS 1,000 ML IV SCH (06:13)
[2018-05-14] MEDS: LEVOTHYROXINE 100 MCG TABLET PO SCH (06:19)
[2018-05-14] MEDS: LEVOTHYROXINE 75 MCG TABLET PO SCH (06:19)
[2018-05-14 07:52] LABS: HB2 TOTAL 8.7 g/dL; HEMOGLOBIN A1C 0.41 g/dL; HEMOGLOBIN A1C % 6.5 % (4.6-6.2)
[2018-05-14] MEDS ORDERED: INSULIN ASPART 300 UNIT/3 ML PEN SUBQ SCH (08:00)
[2018-05-14] MEDS: FAMOTIDINE 20 MG/50 ML 50 ML IV SCH (08:40)
[2018-05-14] MEDS: ASPIRIN 325 MG TABLET PO SCH (08:41)
[2018-05-14] MEDS: POLYETHYLENE GLYCOL 3350 17 GM PACKET PO SCH (08:41)
[2018-05-14] MEDS: LOSARTAN 50 MG TABLET PO SCH (08:41)
[2018-05-14] MEDS: INSULIN ASPART 300 UNIT/3 ML PEN SUBQ SCH ×4 (08:42→20:39)
--- NOTE | 2018-05-14 09:29 | XRAY Report ---
Reason: ORIF RIGHT HIP NAILING Procedure Date: 05/13/2018 Accession Number: [id number] / [id number] Procedure: [place] - OR C-Arm Procedure CPT Code: FULL RESULT: EXAM: OR C-Arm Procedure DATE: 05/13/2018 2:46 PM CLINICAL HISTORY: ORIF RIGHT HIP NAILING COMPARISON: Pelvis x-ray 05/12/2018 FINDINGS/IMPRESSION: C-arm fluoroscopic assistance is provided for ORIF right hip fracture. 2.2 minutes of fluoroscopy time are used. No images are saved.
--- NOTE | 2018-05-14 10:16 | PROVIDER PROGRESS NOTE ---
Subjective - Prog Note Date Prog Note Date: 05/14/18 Prog Note Time: 10:00 - Subjective Pt reports feeling: Improved (Patient reports having had "no pain" overnight.) Objective - Vital Signs/Intake & Output Vital Signs: Vital Signs x48h Temp Pulse Resp BP Pulse Ox 05/14/18 07:28 37.1 C 91 16 126/50 L 95 05/14/18 05:45 37.0 C 96 16 128/55 L 98 Intake & Output: Intake & Output 05/11/18 05/12/18 05/13/18 05/14/18 23:59 23:59 23:59 23:59 Intake Total 4349.233 5156.000 2410 Output Total 850 3000 1525 Balance 818.333 475.000 885 - Lab Results Fish Bones: 05/12/18 14:17 05/12/18 14:17 Other Labs: Lab Results x24hrs 05/14/18 Range/Units 06:52 Glycated Hemoglobin 6.5 H (4.6-6.2) % Estim Average Glucose 140 H (70-100) - Other Results/Comments Other Results/Comments: Patient is alert and oriented x3 he reports being comfortable. He is examined lying in the hospital bed. He is able to initiate flexion extension of his toes ankle and knee. Thigh and calf soft. Right hip dressing bloodstained but dry no erythema appreciated right knee dressing dry. No pain with gentle logrolling of the right lower extremity. Assessment/Plan - Problem List (1) Subtrochanteric fracture Impression: Patient doing well postoperative day #1 status post right femur open reduction internal fixation/cephalo-medullary nail placement. No signs or symptoms of infection or DVT at this time. I recommend continued plan for out of bed with physical therapy and occupational therapy. He will be foot flat weightbearing right lower extremity with assistance and assistive device as necessary. I recommend SCD boots or foot pumps in bed at all times. I recommend incentive spirometer every hour when awake. Recommend aspirin for DVT prophylaxis and continued medical management. Patient's questions were answered he verbalized understanding satisfaction the plan as above. SNF placement pending. Qualifiers: Encounter type: subsequent encounter Fracture type: closed Fracture alignment: displaced Laterality: right Fracture healing: with routine healing Qualified Code(s): S72.21XD - Displaced subtrochanteric fracture of right femur, subsequent encounter for closed fracture with routine healing
[2018-05-14] MEDS: oxyCODONE 5 MG TABLET PO PRN ×2 (11:24→18:26)
--- NOTE | 2018-05-14 14:56 | PROVIDER PROGRESS NOTE ---
Subjective - Prog Note Date Prog Note Date: 05/14/18 Prog Note Time: 14:30 - Subjective Subjective: Patient had a good day with PT today. He ambulated to the bed side commode Rates pain currently as a 2/10, states that it is greatly improved since before surgery Appetite remains robust Drinking adequate amount of fluids Hall is still in place Concerned about his elevated blood sugars in the 300s. He has a continuous glucose monitor in place. Current Medications - Current Medications Current Medications: Acetaminophen (Tylenol) 650 - 975 mg PO Q4HR PRN PRN Reason: PAIN Aspirin (Alisia) 325 mg PO DAILY [facility] Hydralazine HCl (Apresoline Inj) 20 mg IVP Q4HR PRN PRN Reason: SBP>180 Famotidine (Pepcid 20 Mg/50 Ml) 50 mls @ 100 mls/hr IV BID [facility] Last Infusion: 05/14/18 10:34 Dose: Infused Acetaminophen (Ofirmev) 100 mls @ 400 mls/hr IV Q6HR PRN PRN Reason: PAIN Last Infusion: 05/13/18 16:19 Dose: Infused Insulin Aspart (Novolog) 2 - 10 unit SUBQ 0800,1200,1700,2100 [facility]; Protocol Last Admin: 05/14/18 11:24 Dose: 8 unit Insulin Glargine (Lantus Solostar) 3 unit SUBQ QPM [facility] Levothyroxine Sodium (Synthroid) 75 mcg PO QDAC [facility] Last Admin: 05/14/18 06:19 Dose: 75 mcg Levothyroxine Sodium (Synthroid) 100 mcg PO QDAC [facility] Last Admin: 05/14/18 06:19 Dose: 100 mcg Losartan Potassium (Cozaar) 25 mg PO DAILY [facility] Last Admin: 05/14/18 08:41 Dose: 25 mg Morphine Sulfate (Morphine (Carpuject)) 2 mg IVP Q2HR PRN PRN Reason: Pain 8 to 10 Last Admin: 05/13/18 06:02 Dose: 2 mg Ondansetron HCl (Zofran Inj) 4 mg IVP Q6HR PRN PRN Reason: Nausea / Vomiting Ondansetron HCl (Zofran Odt) 4 mg TL Q6HR PRN PRN Reason: Nausea / Vomiting Oxycodone HCl (Roxicodone) 5 mg PO Q4HR PRN PRN Reason: Pain 5 to 7 Last Admin: 05/14/18 11:24 Dose: 5 mg Polyethylene Glycol (Miralax) 17 gm PO DAILY [facility] Last Admin: 05/14/18 08:41 Dose: 17 gm Prochlorperazine Edisylate (Compazine Inj) 10 mg IVP Q6HR PRN PRN Reason: Nausea / Vomiting Prochlorperazine Edisylate (Compazine Inj) 10 mg IVP Q6HR PRN PRN Reason: Nausea / Vomiting Sodium Chloride (Normal Saline Flush 0.9%) 10 ml IVP 0100,0900,1700 [facility] Last Admin: 05/14/18 08:42 Dose: Not Given Sodium Chloride (Normal Saline Flush 0.9%) 10 ml IVP PRN PRN PRN Reason: NEEDED PER PROVIDER ORDERS Home medications: Insulin Degludec [Tresiba Flextouch U-100] 6 units SQ DAILY 07/11/16 Insulin Aspart (Niacinamide) [Fiasp 100 Unit/ml Vial] 1 - 10 units SUBQ ACHS 05/12/18 Levothyroxine Sodium [Synthroid] 175 mcg PO QDAC 05/12/18 Losartan Potassium 25 mg PO DAILY 05/12/18 Objective - Vital Signs/Intake & Output Reviewed Vital Signs: Yes Vital Signs: Vital Signs x48h Temp Pulse Pulse Pulse Pulse Pulse Resp 05/14/18 14:29 37 C 85 16 05/14/18 13:57 37.1 C 106 H 16 05/14/18 12:48 106 H 101 H 94 05/14/18 11:20 97 93 90 05/14/18 07:28 37.1 C 91 16 BP BP BP BP Pulse Ox 05/14/18 14:29 120/49 L 92 05/14/18 13:57 95 05/14/18 12:48 127/47 L 143/62 H 123/49 L 05/14/18 11:20 129/45 L 151/57 H 131/54 H 05/14/18 07:28 126/50 L 95 Intake & Output: Intake & Output 05/11/18 05/12/18 05/13/18 05/14/18 23:59 23:59 23:59 23:59 Intake Total 4602.131 4038.000 2700 Output Total 850 3000 1525 Balance 818.333 717.349 2273 - Objective General Appearance: positive: No acute distress, Alert Eyes Bilateral: positive: Normal inspection, PERRL, EOMI, Other (wears glasses) ENT: positive: ENT inspection nml, Pharynx nml, No signs of dehydration Neck: positive: No JVD Respiratory: positive: Chest non-tender, No respiratory distress, Breath sounds nml. negative: Wheezes, Rales, Rhonchi Cardiovascular: positive: Regular rate & rhythm. negative: No murmur, No gallop, Tachycardia Peripheral Pulses: 2+ Dorsalis pedis (R), 2+ Dorsalis pedis (L) Abdomen: positive: Non-tender, Nml bowel sounds, No distention, Other (continoue glucose monitor) Skin: positive: Warm, Dry Extremities: positive: Non-tender (Right hip dressing with what appears to be dry sangious dressing. Right knee wrap present.), Full ROM, No pedal edema Neurologic/Psychiatric: positive: Oriented x3, CN's nml (2-12), Motor nml, Sensation nml, Mood/affect nml - Lab Results Fish Bones: 05/12/18 14:17 05/12/18 14:17 Other Labs: Lab Results x24hrs 05/14/18 Range/Units 06:52 Glycated Hemoglobin 6.5 H (4.6-6.2) % Estim Average Glucose 140 H (70-100) Assessment/Plan - Problem List (1) Subtrochanteric fracture Impression: Qualifiers: Encounter type: initial encounter Fracture type: closed Fracture alignment: displaced Laterality: right Qualified Code(s): S72.21XA - Displaced subtrochanteric fracture of right femur, initial encounter for closed fracture Assessment/Plan: orthopedics is following Post-op day #1 from right femur open reduction internal fixation/cephalo- medullary nail placement Continue narcotics for pain control as needed. PT/OT -- foot flat weightbearing right lower extremity with assistance and assistive device as necessary. will need SNF placement when medically stable for discharge for continued rehab (2) Insulin-requiring or dependent type II diabetes mellitus Assessment/Plan: His Hgb A1c is 6.8. Patient's blood sugar is currently 322 during my examination, according to his continuous glucose monitoring device. He is currently receiving aspart SSI with meals and will receive 3 units of lantus beginning tonight. Anticipate blood sugars should decrease as the stress of surgery wears off. Will adjust insulin dosing according to blood sugars (3) Hypothyroidism Qualifiers: Hypothyroidism type: acquired Qualified Code(s): E03.9 - Hypothyroidism, unspecified Assessment/Plan: His Levothyroxine 175 mcg daily dose will be continued during hospitalization (4) HTN (hypertension) Qualifiers: Hypertension type: essential hypertension Qualified Code(s): I10 - Essential (primary) hypertension Assessment/Plan: He was poorly controlled at admission, possibly due to pain. BP is better now. His home dose of Losartan 25 mg daily will be continued while here Qualifiers: Encounter type: subsequent encounter Fracture type: closed Fracture alignment: displaced Laterality: right Fracture healing: with routine healing Qualified Code(s): S72.21XD - Displaced subtrochanteric fracture of right femur, subsequent encounter for closed fracture with routine healing
[2018-05-14] MEDS: FAMOTIDINE 20 MG TABLET PO SCH (20:38)
[2018-05-14] MEDS ORDERED: INSULIN GLARGINE 300 UNIT/3 ML PEN SUBQ SCH (21:00)
[2018-05-15] MEDS: SODIUM CHLORIDE FLUSH 0.9% 10 ML SYRINGE IVP SCH ×2 (01:59→08:36)
[2018-05-15] MEDS: oxyCODONE 5 MG TABLET PO PRN ×2 (03:37→12:43)
[2018-05-15] MEDS: LEVOTHYROXINE 100 MCG TABLET PO SCH (06:37)
[2018-05-15] MEDS: LEVOTHYROXINE 75 MCG TABLET PO SCH (06:37)
[2018-05-15 08:21] VITALS: BP 134/52
[2018-05-15] MEDS: INSULIN ASPART 300 UNIT/3 ML PEN SUBQ SCH ×2 (08:34→12:16)
[2018-05-15] MEDS: POLYETHYLENE GLYCOL 3350 17 GM PACKET PO SCH (08:34)
[2018-05-15] MEDS: LOSARTAN 50 MG TABLET PO SCH (08:35)
[2018-05-15] MEDS: FAMOTIDINE 20 MG TABLET PO SCH (08:35)
[2018-05-15] MEDS ORDERED: ASPIRIN 325 MG TABLET PO SCH (09:00)
[2018-05-15] MEDS ORDERED: SENNA 8.6 MG TABLET PO SCH (09:00)
[2018-05-15] MEDS ORDERED: DOCUSATE SODIUM 250 MG CAPSULE PO SCH (09:00)
[2018-05-15] MEDS ORDERED: INSULIN GLARGINE 300 UNIT/3 ML PEN SUBQ SCH (12:00)
--- NOTE | 2018-05-15 12:03 | Discharge Plan ---
"Discharge Plan for SNF / [facility] - Discharge Plan And Transition Orders Disposition: 03 SNF DC/Xfer Condition: Stable Allergies and Adverse Reactions: Allergies Allergy/AdvReac Type Severity Reaction Status Date / Time Latex, Natural Rubber Allergy Itching Verified 05/12/18 14:03 - SNF / [facility] Transition Orders Admit to (Facility): [facility] Under the care of (Name): Jay Jay Covarrubias Discharge Diagnosis: Closed displaced subtrochanteric fracture of right femur (S72.21XA) new on this admission, ongoing. SNF discharge Insulin-requiring or dependent type II diabetes mellitus (E11.9) chronic, hyperglycemia related to stress, change in diet Hypothyroidism (E03.9) chronic, stable Hypertension, uncontrolled (I10) chronic, stable Nocturia (R35.1) chronic, stable Weakness (R53.1) ongoing, rehab recommended Cardiac murmur (R01.1) new finding, echocardiogram is pending Constipation (K59.00) ongoing, a work in progress Weight on admission and: Monthly Additional Bowel Program Orders: If no BM after 2 days, nurse may give M.O.M. 30ml PO PRN and/or ducolax Supp 1 LA and/or AFSHAN 250mg P.O., and/or senna 1-2 tabs PO. On day 3 nurse may give repeat above order until residents constipation is resolved. Treatments & Other Orders: Please check blood glucose AC/HS. Allow use of patient's own insulins, and monitoring if appropriate Orthopedic Orders: Please see orthopedic surgery in their outpatient clinic in the next 7-[address] dressing in place. Medication Orders: PLEASE REFER TO THE DISCHARGE MEDICATION LIST. Insulin Orders?: Yes - Medications New Prescriptions: Acetaminophen [Tylenol] 650 - 975 mg PO Q4HR PRN #90 tablet PRN Reason: Pain oxyCODONE [Roxicodone] 5 mg PO Q4HR PRN #21 tablet PRN Reason: Pain 5 to 7 Aspirin [Alisia] 325 mg PO DAILY #30 tablet Cholecalciferol (Vitamin D3) [Vitamin D] 2,000 unit PO DAILY #30 capsule Docusate Sodium 250Mg Capsule [Colace 250Mg Capsule] 250 - 500 mg PO DAILY #60 capsule Famotidine [Pepcid] 20 mg PO BID #30 tablet Polyethylene Glycol 3350 [Miralax] 17 gm PO DAILY #30 packet Senna [Senokot] 8.6 - 17.2 mg PO DAILY #60 tablet - Diet Texture: Regular Liquids: Thin May have monthly special meal: Yes - Therapies | Activity Therapy: Evaluation | Treat if indicated: PT, OT Rehabilitation Potential: Maximize functional status, Return to independent living Activity: Wt Bearing as Tolerated Assistance Devices: Walker"
--- NOTE | 2018-05-15 12:36 | DISCHARGE SUMMARY ---
"Discharge Summary Admit Date: 05/12/18 Discharge Date: 05/15/18 Discharging Provider: ARVIN Mitchell Primary Care Provider: BRYANT Arango Code Status: Attempt Resuscitation Condition at Discharge: Stable Discharge Disposition: 03 SNF DC/Xfer Discharge Facility Name: [facility] - DIAGNOSES Admission Diagnoses: Subtrochanteric fracture Pre-operative cardiovascular examination Hypertension, uncontrolled Insulin-requiring or dependent type II diabetes mellitus Hypothyroidism Discharge Diagnoses with Status of Each Condition: Closed displaced subtrochanteric fracture of right femur (S72.21XA) new on this admission, ongoing. SNF discharge Insulin-requiring or dependent type II diabetes mellitus (E11.9) chronic, hyperglycemia related to stress, change in diet Hypothyroidism (E03.9) chronic, stable Hypertension, uncontrolled (I10) chronic, stable Nocturia (R35.1) chronic, stable Weakness (R53.1) ongoing, rehab recommended Cardiac murmur (R01.1) new finding, echocardiogram is pending Constipation (K59.00) ongoing, a work in progress - HPI History of Present Illness: HPI per Dr. Maldonado: Adrian Chandra is a 73-year-old gentleman with history of type 2 diabetes and hypertension, not on anticoagulants except for turmeric presents after a slip and fall on the ice landing directly on the right hip with severe pain there. No head or neck injury. He is unable to walk or bear weight. On initial exam patient was unable to walk with LROM to abduction/adduction of right hip along with a subtrochanteric fx seen on imaging. CXR shows no CP process, patient with normal labs and VSS show pain induced uncontrolled HTN. Patient on losartan, synthroid and is a [place] req Type 2 diabetic. Patient has been on tumeric previously, denies chest pain, LOC, syncopal events prior to fall, numbness to right lower extremity or head trauma. Patient to be admitted for further treatment with repair of fracture and pain control. - CONSULTS | PROCEDURES Consultations: Orthopedic surgery- Dr. York Procedures: Procedure Date: 05/13/18 Pre-Op Diagnosis: Right spiral subtrochanteric femur fracture Procedure: Right femur ORIF, cephalo-medullary nail placement Post-Op Diagnosis: Same Primary Surgeon: Steve York MD Anesthesia Type: General ET tube, Local Complications: No complications Estimated Blood Loss (in cc): 100 Plan of Care: Patient tolerated the procedure well instrument and sponge counts are correct patient is transferred to the recovery room in stable condition. Patient would be foot flat weightbearing right lower extremity with assistance and assistive device as necessary. Patient would be out of bed with physical therapy and occupational therapy. He would be on perioperative antibiotics. Analgesic medications. DVT prophylaxis with aspirin as well as mechanical DVT prophylaxis SCDs or foot pump. - HOSPITAL COURSE Hospital Course: The patient had an uncomplicated post-op course except for some hyperglycemia w hich was managed by adjusting insulin doses. [facility] therapy [facility]. The patient was in stable condition and transported via wheel chair van to [facility]. Family was present in the room for his final exam and explanation. - ALLERGIES Allergies/Adverse Reactions: Allergies Allergy/AdvReac Type Severity Reaction Status Date / Time Latex, Natural Rubber Allergy Itching Verified 05/12/18 14:03 - MEDICATIONS Home Medications: Ambulatory Orders Medication Instructions Recorded Confirmed Insulin Degludec [Tresiba 6 units SQ DAILY 07/11/16 05/12/18 Flextouch U-100] Insulin Aspart (Niacinamide) 1 - 10 units SUBQ ACHS 05/12/18 05/12/18 [Fiasp 100 Unit/ml Vial] Levothyroxine Sodium [Synthroid] 175 mcg PO QDAC 05/12/18 05/12/18 Losartan Potassium 25 mg PO DAILY 05/12/18 05/12/18 Acetaminophen [Tylenol] 650 - 975 mg PO Q4HR PRN #90 tablet 05/15/18 Aspirin [Alisia] 325 mg PO DAILY #30 tablet 05/15/18 Cholecalciferol (Vitamin D3) 2,000 unit PO DAILY #30 capsule 05/15/18 [Vitamin D] Docusate Sodium 250Mg Capsule 250 - 500 mg PO DAILY #60 capsule 05/15/18 [Colace 250Mg Capsule] Famotidine [Pepcid] 20 mg PO BID #30 tablet 05/15/18 Polyethylene Glycol 3350 [Miralax] 17 gm PO DAILY #30 packet 05/15/18 Senna [Senokot] 8.6 - 17.2 mg PO DAILY #60 tablet 05/15/18 oxyCODONE [Roxicodone] 5 mg PO Q4HR PRN #21 tablet 05/15/18 - PHYSICAL EXAM AT DISCHARGE General Appearance: positive: No acute distress, Alert Eyes Bilateral: positive: PERRL ENT: positive: ENT inspection nml, Pharynx nml, Dry mucous membranes Neck: positive: Thyroid nml, No JVD, Trachea midline Respiratory: positive: Chest non-tender, No respiratory distress, Breath sounds nml Cardiovascular: positive: Regular rate & rhythm, Systolic murmur Peripheral Pulses: positive: 2+ Abdomen: positive: Non-tender, Nml bowel sounds, No distention Back: positive: Nml inspection Skin: positive: Color nml, Warm, Dry, Pallor Extremities: positive: Nml appearance, Joint swelling, Other (Right hip with non-pitting edema, tenderness, minimal drainage) Neurologic/Psychiatric: positive: Oriented x3, CN's nml (2-12), Motor nml, Sensation nml, Mood/affect nml Reflexes: Bicep (R): 3+, Bicep (L): 3+, Ankle (R): 3+, Ankle (L): 3+ - LABS Result Diagrams: 05/12/18 14:17 05/12/18 14:17 - DIAGNOSTIC IMAGING Diagnostic Imaging Results: Final report reviewed Diagnostic Imaging Results Comments: EXAM: RIGHT HIP RADIOGRAPHY EXAM DATE: 05/12/2018 03:11 PM. FINDINGS: Bones: Vertical oblique fracture through the intertrochanteric region extending into the proximal femur. Offset of distal fragment medially by 2.4 cm. Joints: Hip joint space narrowing. Soft Tissues: Normal. No soft tissue swelling. IMPRESSION: Intertrochanteric fracture extending into proximal femur EXAM: CHEST RADIOGRAPHY EXAM DATE: 05/12/2018 03:11 PM. FINDINGS: Diffuse film artifact throughout the image, which limits evaluation. Heart size is normal. Calcified plaque in the thoracic aorta. No definite consolidation, pleural effusion, or pneumothorax. Apparent 5 mm nodular opacity projecting over the lateral left lung base, which may have been present on the prior exam from 2017. IMPRESSION: No definite acute cardiopulmonary findings. Film artifact limits evaluation. EXAM: RIGHT FEMUR RADIOGRAPHY EXAM DATE: 05/12/2018 03:11 PM. FINDINGS: Bones: Intertrochanteric, proximal femoral fracture is seen on hip views. Joints: Degenerative changes knee Soft Tissues: Normal. No soft tissue swelling. IMPRESSION: Intertrochanteric, proximal femoral fracture is seen on hip films. This does not extend to the distal femur. EXAM: OR C-Arm Procedure DATE: 05/13/2018 2:46 PM CLINICAL HISTORY: ORIF RIGHT HIP NAILING FINDINGS/IMPRESSION: C-arm fluoroscopic assistance is provided for ORIF right hip fracture. 2.2 minutes of fluoroscopy time are used. No images are saved. ECHOCARDIOGRAM: 05/15/18 In process. - FOLLOW UP Follow Up: Admit to (Facility): [facility] Under the care of (Name): Jay Jay Covarrubias - TIME SPENT Time Spent in Discharge (Minutes): 55"
== END 2018-05-15 14:22 | DRG 482 ==
LOC: EDUNIT# → ED 13:57 → MS2 15:28
PROVIDERS: ADMIT Family Medicine; ATTEND Nurse Practitioner
PROC: 0QS606Z Reposition Right Upper Femur with Intramedullary Internal Fixation Device, Open Approach (ICD-10-PCS; principal; 2018-05-13 12:00)
DX: S72.21XA Displaced subtrochanteric fracture of right femur, initial encounter for closed fracture (principal); E03.9 Hypothyroidism, unspecified; I10 Essential (primary) hypertension; E11.65 Type 2 diabetes mellitus with hyperglycemia; R53.1 Weakness; R01.1 Cardiac murmur, unspecified; K59.00 Constipation, unspecified; W00.0XXA Fall on same level due to ice and snow, initial encounter; W00.2XXA Other fall from one level to another due to ice and snow, initial encounter; Y93.01 Activity, walking, marching and hiking; Y92.512 Supermarket, store or market as the place of occurrence of the external cause; Z79.4 Long term (current) use of insulin; Z79.899 Other long term (current) drug therapy
CPT/HCPCS: 36415; 71045; 80053; 83036; 83690; 85025; 85610; 86850; 86900; 86901; 93005; 93306; 96361; 96374; 99283; 99284; 99285

== ENCOUNTER 2018-06-13 15:25 | Outpatient (CLI) | payer MEDICARE, OTHER ==
[2018-06-13 18:12] LABS: HGB - HEMOGLOBIN 12.3 g/dL (14.0-18.0); MEAN CORPUSCULAR HEMOGLOBIN 30.6 pg (27.0-31.0); MEAN CORPUSCULAR HGB CONC 32.8 g/dL (32.0-36.0); MEAN CORPUSCULAR VOLUME 93.4 fL (80.0-94.0); MEAN PLATELET VOLUME 8.9 fL (7.4-11.4); RED BLOOD COUNT 4.02 10^6/uL (4.70-6.10); RED CELL DISTRIBUTION WIDTH 13.9 % (12.0-15.0); WHITE BLOOD COUNT 6.7 x10^3/uL (4.8-10.8)
[2018-06-13 18:32] LABS: ALBUMIN/GLOBULIN RATIO 1.5 (1.0-2.2); BILIRUBIN,TOTAL 1.4 mg/dL (0.2-1.0); CALCIUM 9.1 mg/dL (8.5-10.3); TOTAL PROTEIN 6.7 g/dL (6.7-8.2)
[2018-06-13 18:43] LABS: THYROID STIMULATING HORMONE 1.33 uIU/mL (0.34-5.60)
[2018-06-13 18:46] LABS: HB2 TOTAL 13.3 g/dL; HEMOGLOBIN A1C 0.62 g/dL; HEMOGLOBIN A1C % 6.4 % (4.6-6.2)
[2018-06-13 18:48] LABS: FERRITIN 172.2 ng/mL (23.9-336.2)
[2018-06-13 19:53] LABS: CREATININE 0.8 mg/dL (0.6-1.2)
== END 2018-06-13 15:26 | disposition home or self-care (01) ==
LOC: LAB.F 15:25
PROVIDERS: ATTEND Internal Medicine
DX: E11.9 Type 2 diabetes mellitus without complications (principal); D62 Acute posthemorrhagic anemia; E03.9 Hypothyroidism, unspecified
CPT/HCPCS: 36415; 80053; 82728; 83036; 84443; 85027

== ENCOUNTER 2019-04-03 08:19 | Outpatient (CLI) | payer MEDICARE, OTHER ==
[2019-04-03 10:13] LABS: CALCIUM 8.9 mg/dL (8.5-10.3); CREATININE 0.9 mg/dL (0.6-1.2)
[2019-04-03 10:24] LABS: HB2 TOTAL 12.1 g/dL; HEMOGLOBIN A1C 0.69 g/dL; HEMOGLOBIN A1C % 7.4 % (4.6-6.2)
== END 2019-04-03 08:20 | disposition home or self-care (01) ==
LOC: LAB.S 08:19
PROVIDERS: ATTEND Internal Medicine
DX: E11.9 Type 2 diabetes mellitus without complications (principal); E03.9 Hypothyroidism, unspecified
CPT/HCPCS: 36415; 80048; 83036; 84443